=== PATIENT | female | born 1955 | race Caucasian/White ===

== ENCOUNTER 2017-12-14 01:01 | Observation (INO) ==
--- NOTE | 2017-12-14 01:36 | ED ---
HPI General Chief Complaint: Abdominal Pain Stated Complaint: Abd pain Time Seen by Provider: 12/14/17 01:25 History of Present Illness HPI narrative: 62-year-old female presents to the emergency department by private transportation for complaint of abdominal pain that awaken her from sleep just prior to arrival to the emergency department. Patient states she arrived here on Tuesday visiting from [place] to be with her brother who is here in the hospital. Patient states she has felt well and had no complaints. Patient states she went to bed feeling well and awakened from sleep with 10/10 pain but like in nature tight and sharp around her upper abdomen radiating into her back. Patient states she developed chills sweats and then became nauseated and felt near syncopal. Patient states that the symptoms have essentially resolved now. Pain was 10/10 in intensity and is currently 2-3/10 in intensity. Patient states that now feels like bowel gas. Patient states she has had issues like this before but not as severe and not as long-lasting since having a gastric sleeve performed 4 years ago in [place]. Patient is visiting here from [place]. Patient states indication for her gastric bypass 4 years ago she was overweight and prediabetic. Patient denies any known history of CAD , hypertension, or dyslipidemia. Family history of heart disease and diabetes in her mother who at age 70. Patient does admit to tobacco use and only rare alcohol use. No recent alcohol use. Patient denies any pleuritic chest pain patient denies any chest pain. Patient has had episodes of elevated pancreas enzymes in the past but denies any known history of pancreatitis or hepatitis. Patient denies gastritis or peptic ulcer disease or reflux esophagitis history. Patient status post cholecystectomy. Patient is unable to identify exacerbating or alleviating factors. Patient's had no fever. Patient's had no emesis bilious emesis coffee-ground emesis or hematemesis. No report of diarrhea melena or hematochezia. Patient takes no medications no prescription medications and has no allergies. Related Data Home Medications Medication Instructions Recorded Confirmed No Known Home Medications 12/14/17 12/14/17 Allergies Allergy/AdvReac Type Severity Reaction Status Date / Time No Known Allergies Allergy Verified 12/14/17 01:11 Review of Systems Except as stated in HPI: all other systems reviewed are negative [facility] Medical History Medical History Heart murmur (Acute) Thyroiditis, acute (Acute) Surgical History Surgical History H/O gastric bypass (Acute) Hx of cholecystectomy (Acute) Social History Social History Substance History: No History of Abuse Second Hand Smoke Exposure: Yes Smoking Status: Current every day smoker Tobacco Type: Cigarettes How Often Do You Have a Drink Containing Alcohol: 2 to 3 times a week Recent Travel in [facility] within the Last 8 Weeks: No Recent Out of Country Travel within the Last 8 Weeks: No Immunization History Tetanus Immunization: Unsure Exam Narrative Exam Narrative: GENERAL: Well-nourished, well-developed patient. Well- developed well-nourished female no acute distress no respiratory distress GCS 15 SKIN: Focused skin assessment warm/dry. HEAD: Normocephalic. EYES: No scleral icterus. No injection or drainage. NECK: Supple, trachea midline. No JVD or lymphadenopathy. CARDIOVASCULAR: Regular rate and rhythm without murmurs, gallops, or rubs. RESPIRATORY: Breath sounds equal bilaterally. No accessory muscle use. GASTROINTESTINAL: Abdomen soft, reproducible epigastric tenderness without guarding or rebound, nondistended. MUSCULOSKELETAL: No cyanosis, or edema. BACK: Nontender without obvious deformity. No CVA tenderness. Well-developed well-nourished female no acute distress no respiratory distress Course Initial Documented Vital Signs Temperature 98.4 F 12/14/17 01:14 Pulse Rate 73 12/14/17 01:14 Respiratory Rate 18 12/14/17 01:14 Blood Pressure 131/77 12/14/17 01:14 Pulse Oximetry 98 12/14/17 01:14 Last Documented Vital Signs Temperature 98.4 F 12/14/17 01:14 Pulse Rate 73 12/14/17 01:14 Respiratory Rate 18 12/14/17 01:14 Blood Pressure 131/77 12/14/17 01:14 Pulse Oximetry 99 12/14/17 01:40 Medical Decision Making MDM Narrative Medical decision making narrative: 62-year-old female presents to the emergency department for evaluation of abdominal pain that is approved since onset just prior to arrival to the emergency department. Patient with history of gastric sleeve surgery and cholecystectomy. EKG performed shows sinus rhythm rate [address] elevation injury pattern or ectopy mild intraventricular conduction delay noted QRS 114 ms QT 358 with QTc C corrected [address] abdomen pelvis remarkable for evidence of previous bariatric surgery/gastric sleeve cholecystectomy with mild postcholecystectomy ductal dilatation and no acute intra-abdominal or intrapelvic process; lab values grossly normal range except for mild elevation of total bilirubin and transaminases which patient reports is been elevated since her surgery. Lipase is normal; patient's case discussed with on-call bariatric surgeon Dr. Hawk recommends consult to Dr. Carter for endoscopy. Patient will be admitted to medicine service for serial cardiac enzymes and for abdominal pain as well as consult to bariatric surgeon Dr. Carter for upper endoscopy. Patient administered Protonix 40 mg IV Call placed to [facility] , Dr Rodriguez; aware of risk profile 62 femal tobaccoism pre -diabetic, FH CAD; and bariatric consult recommendation to Dr Carter per Dr Dawkins Differential Diagnosis Differential Diagnosis: Abdominal pain, atypical chest pain, ACS, esophageal spasm, erosive gastritis, peptic ulcer disease, pancreatitis, esophageal spasm Lab Data Lab results reviewed: Yes I reviewed the patient's lab results. Result diagrams: 12/14/17 01:42 12/14/17 01:42 Lab Results 12/14/17 12/14/17 Range/Units 01:42 01:42 WBC 6.6 (4.0-11.0) th/mm3 RBC 4.55 (4.00-5.30) mil/mm3 Hgb 13.7 (11.6-15.3) gm/dL Hct 39.8 (35.0-46.0) % MCV 87.5 (80.0-100.0) fL MCH 30.0 (27.0-34.0) pg MCHC 34.3 (32.0-36.0) % RDW 13.7 (11.6-17.2) % Plt Count 143 L (150-450) th/mm3 MPV 8.5 (7.0-11.0) fL Neut % (Auto) 86.1 H (16.0-70.0) % Lymph % (Auto) 7.7 L (9.0-44.0) % [place] % (Auto) 3.9 (0.0-8.0) % Eos % (Auto) 2.0 (0.0-4.0) % Baso % (Auto) 0.3 (0.0-2.0) % Neut # (Auto) 5.7 (1.8-7.7) th/mm3 Lymph # (Auto) 0.5 L (1.0-4.8) th/mm3 [place] # (Auto) 0.3 (0.0-0.9) th/mm3 Eos # (Auto) 0.1 (0.0-0.4) th/mm3 Baso # (Auto) 0.0 (0.0-0.2) th/mm3 WBC Differential . Differential Comment Auto diff final Sodium 141 (136-145) meq/L Potassium 3.9 (3.5-5.1) meq/L Chloride 105 (98-107) meq/L Carbon Dioxide 31.1 (21.0-32.0) meq/L Anion Gap 5 (5-15) meq/L BUN 20 H (7-18) mg/dL Creatinine 0.71 (0.50-1.00) mg/dL Estimated GFR 83 L (>89) mL/min Random Glucose 111 H (74-106) mg/dL Calcium 8.1 L (8.5-10.1) mg/dL Total Bilirubin 1.8 H (0.2-1.0) mg/dL AST 93 H (15-37) U/L ALT 55 H (10-53) U/L Alkaline Phosphatase 60 (45-117) U/L Troponin I Less than 0.02 L (0.02-0.05) ng/mL Total Protein 6.6 (6.4-8.2) g/dL Albumin 3.7 (3.4-5.0) g/dL Lipase 353 (73-393) U/L Imaging Data Radiologist's impression: ITS Impressions Abdomen/Pelvis CT 12/14/17 01:36 CONCLUSION: 1. No acute CT abnormality in the abdomen or pelvis. 2. Postsurgical features of prior gastric bypass. 3. Status post cholecystectomy with mild extrahepatic biliary ductal dilatation , likely reflecting reservoir effect. Chest X-Ray 12/14/17 01:36 CONCLUSION: 1. No acute cardiopulmonary disease. ECG Data Prior ECG tracings: not available for review Interpretation: EKG sinus rhythm rate [address] elevation or injury pattern change noted Discharge Plan Discharge Disposition Patient Disposition: 30 Still Patient Discharge Condition Condition: Stable Discharge Details Diagnosis: Abdominal pain, H/O gastric bypass, Atypical chest pain Physicians Team ED Provider: Sarahy Hernandez Primary Care Provider: Primary Care Leslye Greer Rxs /Orders / Referrals /Forms Prescriptions: No Action No Known Home Medications RF: 0 Status ED Status: With Doctor
[2017-12-14] MEDS ORDERED: Sod Chloride 0.9% Inj 1,000 ML IV.CONT SCH (01:45)
[2017-12-14 01:57] LABS: Baso % (Auto) 0.3 % (0.0-2.0); Eos # (Auto) 0.1 th/mm3 (0.0-0.4); Hematocrit 39.8 % (35.0-46.0); Hemoglobin 13.7 gm/dL (11.6-15.3); Lymph # (Auto) 0.5 th/mm3 (1.0-4.8); Lymph % (Auto) 7.7 % (9.0-44.0); Mean Corpuscular HGB Conc 34.3 % (32.0-36.0); Mean Corpuscular Volume 87.5 fL (80.0-100.0); Mean Platelet Volume 8.5 fL (7.0-11.0); Mono # (Auto) 0.3 th/mm3 (0.0-0.9); Mono % (Auto) 3.9 % (0.0-8.0); Neut # (Auto) 5.7 th/mm3 (1.8-7.7); Neut % (Auto) 86.1 % (16.0-70.0); Platelet Count 143 th/mm3 (150-450); Red Blood Count 4.55 mil/mm3 (4.00-5.30); Red Cell Distribution Width 13.7 % (11.6-17.2); White Blood Count 6.6 th/mm3 (4.0-11.0)
[2017-12-14 02:11] LABS: Alanine Aminotransferase 55 U/L (10-53); Albumin 3.7 g/dL (3.4-5.0); Anion Gap 5 meq/L (5-15); Aspartate Aminotransferase 93 U/L (15-37); Blood Urea Nitrogen 20 mg/dL (7-18); Calcium 8.1 mg/dL (8.5-10.1); Carbon Dioxide 31.1 meq/L (21.0-32.0); Chloride 105 meq/L (98-107); Glomerular Filtration Rate 83 mL/min (>89); Glucose,Random 111 mg/dL (74-106); Lipase 353 U/L (73-393); Potassium 3.9 meq/L (3.5-5.1); Sodium 141 meq/L (136-145)
[2017-12-14 02:15] LABS: Alkaline Phosphatase 60 U/L (45-117); Total Protein 6.6 g/dL (6.4-8.2)
--- NOTE | 2017-12-14 02:47 | XR ---
EXAM DATE: 12/14/2017 2:36 AM EDT AGE/SEX: 62 years / Female INDICATIONS: Lower chest, upper abdominal pain. CLINICAL DATA: This is the patient's initial encounter. Patient reports that signs and symptoms have been present for 1 day and indicates a pain score of 4/10. MEDICAL/SURGICAL HISTORY: None. None. COMPARISON: No prior exams available for comparison. FINDINGS: A single AP view of the chest demonstrates the lungs to be symmetrically aerated without evidence of mass, infiltrate or effusion. The cardiomediastinal contours are unremarkable. Osseous structures a re intact. CONCLUSION: 1. No acute cardiopulmonary disease. Electronically signed by: Andres Cho MD 12/14/2017 2:46 AM EDT
--- NOTE | 2017-12-14 03:25 | CT ---
EXAM DATE: 12/14/2017 3:10 AM EDT AGE/SEX: 62 years / Female INDICATIONS: Upper abdominal pain. CLINICAL DATA: This is the patient's initial encounter. Patient reports that signs and symptoms have been present for 1 day and indicates a pain score of 5/10. MEDICAL/SURGICAL HISTORY: None. Cholecystectomy. Gastric bypass. ORAL CONTRAST: No oral contrast ingested. RADIATION DOSE: 8.30 CTDI (mGy) COMPARISON: No prior exams available for comparison. TECHNIQUE: Multiple contiguous axial images were obtained through the abdomen and pelvis following b olus infusion of 100 ml Omnipaque 350 (iohexol) nonionic water-soluble contrast as a single exam do se. No oral contrast ingested. Using automated exposure control and adjustment of the mA and/or kV a ccording to patient size, radiation dose was kept as low as reasonably achievable to obtain optimal d iagnostic quality images. DICOM format image data is available electronically for review and compari son. FINDINGS: LOWER LUNGS: The visualized lower lungs are clear. LIVER: The liver has a homogeneous density without space-occupying lesion. Gallbladder is surgically absent. Slight extrahepatic biliary ductal dilatation likely reflecting reservoir effect. SPLEEN: Homogeneous density without enlargement. PANCREAS: Unremarkable without mass or calcification. KIDNEYS: Kidneys demonstrate symmetrical enhancement and are symmetrical in size without evidence fo r radiopaque renal calculi or hydronephrosis. ADRENAL GLANDS: Unremarkable. AORTA: Magali-aneurysmal. BOWEL/MESENTERY: The bowel loops are grossly unremarkable. Postsurgical features in the stomach. Th e cecum and sigmoid colon have a normal configuration. No drainable fluid collections or significant free fluid. ABDOMINAL WALL: Intact. RETROPERITONEUM: No evidence of adenopathy in the retrocrural, para-aortic, or deep pelvic regions. BLADDER: Contours are smooth. REPRODUCTIVE: No abnormal masses or calcifications seen. BONY STRUCTURES: Mild degenerative changes of the lower lumbar spine. CONCLUSION: 1. No acute CT abnormality in the abdomen or pelvis. 2. Postsurgical features of prior gastric bypass. 3. Status post cholecystectomy with mild extrahepatic biliary ductal dilatation, likely reflecting r eservoir effect. Electronically signed by: Andres Cho MD 12/14/2017 3:24 AM EDT
[2017-12-14] MEDS ORDERED: Ketorolac Inj 30 MG/ML (IVP) Vial IV.PUSH ONE (03:48)
[2017-12-14] MEDS ORDERED: Pantoprazole Inj 40 MG Vial IV.PUSH ONE (04:05)
[2017-12-14 04:51] LABS: Bilirubin,Urine Negative (Negative); Clarity,Urine Clear (Clear); Color,Urine Yellow (Yellw/Straw); Glucose,Urine (UA) Negative (Negative); Leukocyte Esterase,Urine Negative (Negative); Nitrite,Urine Negative (Negative); Squamous Epithelial Cell,Urine 1 /hpf (0-5)
[2017-12-14 05:04] LABS: Creatine Kinase 126 U/L (26-192)
--- NOTE | 2017-12-14 08:39 | ECG ---
Date Performed: 12/14/2017 Time Performed: 01:17:24 PTAGE: 62 years EKG: Sinus rhythm MODERATE INTRAVENTRICULAR CONDUCTION DELAY BORDERLINE ECG NO PREVIOUS TRACING DOCTOR: Jordy Pérez Interpretating Date/Time 12/14/2017 08:37:06
--- NOTE | 2017-12-14 15:23 | MB ---
cc: Russ Carter MD DATE: 12/14/2017 REASON FOR CONSULTATION: Abdominal pain. HISTORY OF PRESENT ILLNESS: The patient is a 62-year-old female with a history of morbid obesity, history of sleeve gastrectomy 4 years ago. The patient presents with acute onset of epigastric pain. She states the pain was initially a 10/10, was sudden, severe, sharp, located in the epigastric region. She noted the pain approximately 24 hours ago and came to the emergency department. Further evaluation including CT scan within normal limits. The patient also notes she had done relatively well with her sleeve gastrectomy, losing 100 pounds. She states she is a daily smoker. She denies any steroids or NSAID use. She further has not seen a bariatric surgeon in 2 years and is not currently taking vitamins. The patient further denies fevers or chills. She does complain of some nausea. PAST MEDICAL HISTORY: Morbid obesity, prediabetes, thyroiditis heart murmur. PAST SURGICAL HISTORY: Sleeve gastrectomy, cholecystectomy, . SOCIAL HISTORY: Positive smoking, occasional ETOH. Denies IVDA. ALLERGIES: NO KNOWN DRUG ALLERGIES. MEDICATIONS: See electronic medical record. FAMILY HISTORY: Denies diabetes or hypertension. REVIEW OF SYSTEMS: GENERAL: Denies fever or chills. HEENT: Denies eye pain, ear pain. NECK: Denies swelling or pain. LUNGS: Denies cough or wheeze. HEART: Denies palpitations or chest pain. ABDOMEN: Complains of abdominal pain and nausea. Denies vomiting. GENITOURINARY: Denies dysuria, hematuria. ENDOCRINE: Denies polyuria or polydipsia. INTEGUMENT: Denies any masses or lesions. MUSCULOSKELETAL: Denies any arthralgias or myalgias. NEUROLOGIC: Denies numbness or tingling. PSYCHIATRIC: Denies change in mood or sensorium. PHYSICAL EXAMINATION: GENERAL: In no acute distress. VITAL SIGNS: Temperature 98.4, pulse 73, respiration 18, blood pressure 131/77, and saturation 98%. HEENT: Pupils equal, round, reactive. NECK: Supple. Trachea midline. LUNGS: Clear to auscultation, bilateral expansion. HEART: S1, S2. Regular. ABDOMEN: Soft, nontender, nondistended. Positive tenderness to palpation in mild epigastric region. No rebound, no guarding. EXTREMITIES: Warm and well perfused. BACK: No stepoff, nontender. Appropriate curvature. NEUROLOGIC: GCS 15, 5/5 motor in all extremities. PSYCHIATRIC: Appropriate mood, appropriate judgment. LABORATORY AND DIAGNOSTIC DATA: WBC 6.6, hemoglobin 13.7, hematocrit 39.8, platelets 143. Sodium 141, potassium 3.9, chloride 105, BUN is 20, creatinine 0.7, AST 93, ALT 55, bilirubin 1.8, lipase 353. IMAGING STUDIES: A CT scan reviewed by myself with evidence of sleeve gastrectomy. No acute surgical pathology or free air. Mild extrahepatic biliary dilation. ASSESSMENT: The patient is a 62-year-old female with epigastric pain. The pain currently is improved. Concern for gastric ulcer. PLAN: After a full clinical, radiological and laboratory workup, patient with the above-named issues. At this point, my concern is possible gastric ulcer. The patient is at risk status post bariatric surgery and smoking history, current smoker. At this point, I recommend the patient undergo endoscopy and quit smoking. I recommend a PPI and Carafate for treatment. Discussed with the patient in detail. She states understanding. However, she states she is from [place] and would like to travel back to [place] to have any intervention done. I discussed with the patient risks, benefits, and recommended that she followup with GI or Bariatric Surgery in [place]. MD ROB Rosas/HOPE , 02:58 PM , 03:22 PM
== END 2017-12-14 11:08 | disposition home or self-care (01) ==
LOC: NEPC 01:01 → NEDA 01:01
PROVIDERS: ADMIT Family Medicine; ATTEND Family Medicine
DX: R73.03 Prediabetes; F17.210 Nicotine dependence, cigarettes, uncomplicated; Z98.84 Bariatric surgery status; Z83.3 Family history of diabetes mellitus; R10.9 Unspecified abdominal pain; R55 Syncope and collapse; R68.83 Chills (without fever); R01.1 Cardiac murmur, unspecified; E06.9 Thyroiditis, unspecified; Z82.49 Family history of ischemic heart disease and other diseases of the circulatory system